=== PATIENT | male | born 1990 ===

== ENCOUNTER → 2018-06-12 21:02 | Outpatient (REF) | payer OTHER, SELFPAY ==
[2018-06-12 21:23] LABS: Add Manual Diff / Slide Review NO; Basophils Absolute Auto 0 /uL (0-100); Basophils Percent Auto 0.6 % (0-2); Eosinophils Absolute Auto 200 /uL (0-450); Eosinophils Percent Auto 3.7 % (2-4); Hematocrit 56.2 % (41-53); Hemoglobin 19.1 g/dL (13.5-17.5); Lymphocytes Absolute Auto 2300 /uL (1100-4500); Lymphocytes Percent Auto 36.6 % (25-40); Mean Corpuscular Hemoglobin 31.2 PG (26-34); Mean Corpuscular Volume 91.6 fL (80-100); Monocytes Absolute Auto 500 /uL (0-900); Monocytes Percent Auto 7.7 % (3-14); Neutrophils Absolute Auto 3200 /uL (1500-7000); Neutrophils Percent Auto 51.4 % (50-75); Platelet Count 169 X10^3/uL (150-400); Red Blood Cell Count 6.13 X10^6/uL (4.5-5.9); Red Cell Distribution Width 12.5 % (11.6-14.8); White Blood Cell Count 6.2 X10^3/uL (4.5-11.0)
[2018-06-14 08:37] LABS: Sex Hormone Binding Globulin 22.4
[2018-06-15 20:10] LABS: Estradiol 23 pg/mL (< 40)
[2018-06-17 21:54] LABS: Testosterone, Total 124.9
[2018-06-17 21:55] LABS: Testosterone,Free 10.5
== END ==
LOC: LAB 21:02
PROVIDERS: Visit Provider Naturopath
DX: Q98.4 Klinefelter syndrome, unspecified (principal); R53.83 Other fatigue; Z13.89 Encounter for screening for other disorder
CPT/HCPCS: 36415; 82670; 84153; 84154; 84270; 84402; 84403; 84443; 85025

== ENCOUNTER → 2018-08-30 21:31 | Outpatient (REF) | payer OTHER, SELFPAY ==
[2018-08-30 23:20] LABS: Hematocrit 53.7 % (41-53); Hemoglobin 18.5 g/dL (13.5-17.5); Mean Corpuscular HGB Conc 34.4 % (30-36); Mean Corpuscular Hemoglobin 31.5 PG (26-34); Mean Corpuscular Volume 91.7 fL (80-100); Platelet Count 180 X10^3/uL (150-400); Red Blood Cell Count 5.86 X10^6/uL (4.5-5.9); Red Cell Distribution Width 14.1 % (11.6-14.8); White Blood Cell Count 4.9 X10^3/uL (4.5-11.0)
[2018-08-30 23:24] LABS: Estradiol, Total 29.1 pg/mL
[2018-08-30 23:26] LABS: Add Manual Diff / Slide Review YES
[2018-08-30 23:36] LABS: Neutrophils Absolute Manual 2548 /uL (3000-5900); RBC Morphology Normal Morphology; Total Cells Counted 100
[2018-09-02 18:37] LABS: PSA Total 0.56 ng/mL (< 4.01)
[2018-09-05 13:44] LABS: Testosterone, Total 195.2
[2018-09-05 13:45] LABS: Sex Hormone Binding Globulin 20.3; Testosterone,Free 11.4
== END ==
LOC: LAB 21:31
PROVIDERS: Visit Provider Family Medicine
DX: E29.1 Testicular hypofunction (principal); D75.1 Secondary polycythemia
CPT/HCPCS: 36415; 82670; 84153; 84154; 84270; 84402; 84403; 85025